=== PATIENT | male | born 1990 | race Caucasian/White ===

== ENCOUNTER 2021-08-08 11:41 | Emergency (ER) | payer SELFPAY ==
[2021-08-08] MEDS ORDERED: MAGNES/ALUMIN/SIMET 30ML UCUP ONE (12:23)
[2021-08-08] MEDS ORDERED: PANTOPRAZOLE 40 MG INJ ONE (12:23)
[2021-08-08] MEDS ORDERED: LIDOCAINE VISCOUS 2% SOLN 15 ML UDC ONE (12:24)
[2021-08-08 12:32] LABS: Absolute Lymphocytes (CBC) 1.7 K/uL (0.7-4.9); Hematocrit 46.6 % (39.6-49.0); MPV 8.2 fL (7.6-11.3)
[2021-08-08 12:50] LABS: ALT/SGPT 57 U/L (12-78); AST/SGOT 20 U/L (15-37); Albumin 3.8 g/dL (3.4-5.0); Alkaline Phosphatase 87 U/L (45-117); BUN Blood Urea Nitrogen 16 mg/dL (7-18); Bicarbonate 25 mmol/L (21-32); Bilirubin Total 0.4 mg/dL (0.2-1.0); Glucose Level 93 mg/dL (74-106); Lipase 76 U/L (73-393); Potassium 3.9 mmol/L (3.5-5.1); Protein, Total 7.4 g/dL (6.4-8.2); Sodium Level 139 mmol/L (136-145)
--- NOTE | 2021-08-08 13:13 | RAD REPORT ---
EXAM DESCRIPTION: US - Abdomen Exam Limited - 08/08/2021 12:58 pm CLINICAL HISTORY: chest pain COMPARISON: No comparisons FINDINGS: No gallstones, sludge or other abnormalities within the gallbladder lumen. There is no wal l thickening or pericholecystic fluid. No common duct stone or biliary tree dilatation identified. IMPRESSION: Normal gallbladder and biliary tree ultrasound.
--- NOTE | 2021-08-08 13:51 | RAD REPORT ---
EXAM DESCRIPTION: [place] Single View08/08/2021 1:35 pm CLINICAL HISTORY: Chest pain COMPARISON: none FINDINGS: The lungs appear clear of acute infiltrate. The heart is normal size IMPRESSION: No acute abnormalities displayed
--- NOTE | 2021-08-08 14:14 | ER ---
Nurse's Notes [facility] Name: Nathan Tena Age: 30 yrs Sex: Male : 1990 Arrival Date: 08/08/2021 Time: 11:42 Bed 23 Private MD: Diagnosis: Chest pain, unspecified;Gastro-esophageal reflux disease with esophagitis Presentation: 08/08 12:14 Chief complaint: Patient states: Intermittent mid-sternal chest pain > 1 month, states ph that it was worse today while at work, describes as "tightness", also reports SOB, nausea, and dizziness when pain occurred today. Coronavirus screen: Vaccine status: Patient reports receiving the 2nd dose of the covid vaccine. Ebola Screen: No symptoms or risks identified at this time. Initial Sepsis Screen: Does the patient meet any 2 criteria? No. Patient's initial sepsis screen is negative. Does the patient have a suspected source of infection? No. Patient's initial sepsis screen is negative. Risk Assessment: Do you want to hurt yourself or someone else? Patient reports no desire to harm self or others. Onset of symptoms was August 08, 2021. 12:14 Method Of Arrival: Wheelchair ph 12:14 Acuity: NAZARIO 3 ph Triage Assessment: 12:17 General: Appears in no apparent distress. Behavior is calm, cooperative, appropriate ph for age, Denies fever. Pain: Complains of pain in anterior aspect of right upper chest, anterior aspect of left upper chest and mid-sternal area Pain radiates to anterior aspect of left shoulder. Neuro: Level of Consciousness is awake, alert, obeys commands, Oriented to person, place, time, situation. Cardiovascular: Reports chest pain, lightheadedness, shortness of breath. Respiratory: No deficits noted. Derm: Skin is intact, is healthy with good turgor, Skin is pink, warm \\T\\ dry. Historical: - Allergies: 12:16 No Known Allergies; ph - PMHx: 12:16 Asthma; Sleep apnea; ph - PSHx: 12:16 hernia; ph - Immunization history:: Adult Immunizations up to date. - Social history:: Smoking status: Patient denies any tobacco usage or history of. - Family history:: not pertinent. - Hospitalizations: : No recent hospitalization is reported. Screenin:20 Abuse screen: Denies threats or abuse. Nutritional screening: No deficits noted. ss7 Tuberculosis screening: No symptoms or risk factors identified. Fall Risk IV access (20 points). Assessment: 12:20 General: Appears in no apparent distress. uncomfortable, Behavior is calm, cooperative, ss7 appropriate for age. Pain: Complains of pain in epigastric. Neuro: No deficits noted. Cardiovascular: Heart tones S1 S2. Respiratory: Airway is patent Breath sounds are clear bilaterally. GI: Bowel sounds present X 4 quads. Abd is soft in epigastric area Abdomen is tender to palpation. : No deficits noted. EENT: No deficits noted. Derm: No deficits noted. Musculoskeletal: No deficits noted. Vital Signs: 12:14 BP 152 / 88; Pulse 57; Resp 18; Temp 98.3; Pulse Ox 98% on R/A; Weight 142.88 kg; ph Height 6 ft. 2 in. (187.96 cm); 13:00 BP 122 / 58; Pulse 53; Resp 16; Pulse Ox 96% on R/A; ss7 14:00 BP 107 / 59; Pulse 52; Resp 18; Pulse Ox 97% on R/A; ss7 12:14 Body Mass Index 40.44 (142.88 kg, 187.96 cm) ph ED Course: 11:42 Patient arrived in ED. am2 12:00 Mike Smith MD is Attending Physician. rn 12:16 Triage completed. ph 12:17 Arm band placed on Patient placed in an exam room, on a stretcher. ph 12:19 Zenia Guerra, RN is Primary Nurse. ss7 12:20 Patient has correct armband on for positive identification. Bed in low position. Call ss7 light in reach. ichthyologist on. Pulse ox on. NIBP on. 12:20 No provider procedures requiring assistance completed. Inserted saline lock: 20 gauge ss7 in right antecubital area, using aseptic technique. 12:21 Troponin High Sensitivity Sent. ss7 12:21 Abdomen Limited US Sent. ss7 12:22 CBC with Diff Sent. ss7 12:22 CMP Sent. ss7 12:22 Lipase Sent. ss7 12:59 EKG done, by ED staff. lr4 13:00 Abdomen Limited US In Process Unspecified. EDMS 13:36 XRAY Chest (1 view) In Process Unspecified. EDMS 14:13 Irineo Torres MD is Referral Physician. rn 14:28 IV discontinued, intact. ss7 Administered Medications: 12:26 Drug: ProTONIX (pantoprazole) 40 mg Route: IVP; Site: right antecubital; lr4 14:28 Follow up: Response: No adverse reaction ss7 12:26 Drug: GI Cocktail without - (Maalox Suspension 30 ml, Lidocaine Liquid 2 % 15 lr4 ml) Route: PO; 14:28 Follow up: Response: No adverse reaction ss7 Outcome: 14:13 Discharge ordered by . rn 14:28 Discharged to home ambulatory. ss7 14:28 Condition: good 14:28 Discharge instructions given to patient, Instructed on discharge instructions, follow up and referral plans. Demonstrated understanding of instructions, follow-up care. 14:37 Patient left the ED. ss7 Signatures: Dispatcher [employer] Mike Balderas MD MD rn Hall, Patricia RN ALY Rodríguez, Zenia Campos RN RN ss7 Brenda Sommer RN RN lr4
--- NOTE | 2021-08-08 14:14 | EDPHYS ---
Physician Documentation [facility] Name: Nathan Tena Age: 30 yrs Sex: Male : 1990 Arrival Date: 08/08/2021 Time: 11:42 Bed 23 Private MD: ED Physician Mike Smith HPI: 08/08 13:25 This 30 yrs old Male presents to ER via Wheelchair with complaints of Chest Pain. rn 13:25 The patient or guardian reports chest pain that is located primarily in the substernal rn area. The pain does not radiate. Associated signs and symptoms: Pertinent positives: abdominal pain, Pertinent negatives: cough, diaphoresis, shortness of breath, syncope, vomiting. The chest pain is described as aching. Duration: The patient or guardian reports multiple episodes, that are intermittent. Modifying factors: The symptoms are alleviated by nothing. the symptoms are aggravated by eating. Severity of pain: At its worst the pain was moderate in the emergency department the pain is unchanged. The patient has experienced similar episodes in the past. The patient has been recently seen by a physician:. Pt reports ongoing chest pain for months, almost daily, worse over last 2 weeks, reports feels tight and achy. No trauma. No fever/cough. Reports sometimes worse after eating. NO vomiting/diarrhea. Reports lately increase in coffee/energy drinks as well as increase in fast food. Has been seen for chest pain in an ER and told wasn't his heart. . Historical: - Allergies: 12:16 No Known Allergies; ph - PMHx: 12:16 Asthma; Sleep apnea; ph - PSHx: 12:16 hernia; ph - Immunization history:: Adult Immunizations up to date. - Social history:: Smoking status: Patient denies any tobacco usage or history of. - Family history:: not pertinent. - Hospitalizations: : No recent hospitalization is reported. ROS: 13:25 Constitutional: Negative for fever, chills, and weight loss, Eyes: Negative for injury, rn pain, redness, and discharge, Neck: Negative for injury, pain, and swelling, Cardiovascular: Negative for palpitations, and edema, Respiratory: Negative for shortness of breath, cough, wheezing, and pleuritic chest pain, Abdomen/GI: Negative for nausea, vomiting, diarrhea, and constipation, Back: Negative for injury and pain, MS/Extremity: Negative for injury and deformity, Skin: Negative for injury, rash, and discoloration, Neuro: Negative for headache, weakness, numbness, tingling, and seizure. Exam: 13:25 Constitutional: Overweight male, no acute distress Head/Face: Normocephalic, rn atraumatic. Eyes: Periorbital areas with no swelling, redness, or edema. Cardiovascular: Regular rate and rhythm. No pulse deficits. Respiratory: No increased work of breathing, no retractions or nasal flaring. Abdomen/GI: soft, mild epigastric and RUQ tenderness, no rebound, neg [place] Skin: Warm, dry MS/ Extremity: Pulses equal, no cyanosis. Neuro: Awake and alert, GCS 15 Vital Signs: 12:14 BP 152 / 88; Pulse 57; Resp 18; Temp 98.3; Pulse Ox 98% on R/A; Weight 142.88 kg; ph Height 6 ft. 2 in. (187.96 cm); 13:00 BP 122 / 58; Pulse 53; Resp 16; Pulse Ox 96% on R/A; ss7 14:00 BP 107 / 59; Pulse 52; Resp 18; Pulse Ox 97% on R/A; ss7 12:14 Body Mass Index 40.44 (142.88 kg, 187.96 cm) ph MDM: 12:00 Patient medically screened. rn 12:55 ED course: U/S neg per certified medical technician, no stones or thickening.. rn 14:08 Differential diagnosis: acute myocardial infarction, acute pericarditis, coronary rn artery disease cholecystitis, Cholelithiasis costochondritis, esophagitis, gastritis, gastroesophageal reflux disease (GERD), pancreatitis, pleurisy, pneumothorax. HEART Score: History: Slightly Suspicious (0), ECG: Normal (0), Age: < or = 45 years (0), Risk Factors: No Risk Factors Known (0), Troponin: < or = 1 x Normal Limit (0), Total Score = 0. Data reviewed: vital signs, nurses notes, lab test result(s), EKG, radiologic studies, plain films, ultrasound, and as a result, I will discharge patient. Counseling: I had a detailed discussion with the patient and/or guardian regarding: the historical points, exam findings, and any diagnostic results supporting the discharge/admit diagnosis, lab results, radiology results, the need for outpatient follow up, to return to the emergency department if symptoms worsen or persist or if there are any questions or concerns that arise at home. Response to treatment: the patient's symptoms have mildly improved after treatment, and as a result, I will discharge patient. Special discussion: Based on the patient's history, exam, and Dx evaluation, there is no indication for emergent intervention or inpatient Tx. It is understood by the patient/guardian that if the Sx's persist or worsen they need to return immediately for re-evaluation. Based on the patient's Hx, exam, and Dx evaluation, there is no indication for emergent surgery or inpatient Tx. It is understood by the patient/guardian that if the Sx's persist or worsen they need to return immediately for re-evaluation. I discussed with the patient/guardian in detail that at this point there is no indication for admission to the hospital. It is understood, however, that if the symptoms persist or worsen the patient needs to return immediately for re-evaluation. 14:08 Special discussion: Based on the history and exam findings, there is no indication for rn further emergent testing or inpatient evaluation. I discussed with the patient/guardian the need to see the enterprise application analyst for further evaluation of the symptoms. 08/08 12:14 Order name: CBC with Diff; Complete Time: 12: rn 08/08 12:14 Order name: CMP; Complete Time: 12: rn 08/08 12:14 Order name: Lipase; Complete Time: 12: rn 08/08 12:14 Order name: Abdomen Limited US; Complete Time: 13:18 rn 08/08 12:14 Order name: Troponin High Sensitivity; Complete Time: 12:52 rn 08/08 12:14 Order name: XRAY Chest (1 view); Complete Time: 14:07 rn 08/08 12:14 Order name: IV Saline Lock; Complete Time: 12:22 rn 08/08 12:14 Order name: Labs collected and sent; Complete Time: 12:22 rn Administered Medications: 12:26 Drug: ProTONIX (pantoprazole) 40 mg Route: IVP; Site: right antecubital; lr4 14:28 Follow up: Response: No adverse reaction ss7 12:26 Drug: GI Cocktail without - (Maalox Suspension 30 ml, Lidocaine Liquid 2 % 15 lr4 ml) Route: PO; 14:28 Follow up: Response: No adverse reaction ss7 Disposition Summary: 08/08/21 14:13 Discharge Ordered Location: Home rn Problem: an ongoing problem rn Symptoms: have improved rn Condition: Stable rn Diagnosis - Chest pain, unspecified rn - Gastro-esophageal reflux disease with esophagitis rn Followup: rn - With: Irineo Torres MD - When: As needed - Reason: Recheck today's complaints, Re-evaluation by your physician Discharge Instructions: - Discharge Summary Sheet rn - Nonspecific Chest Pain, Adult rn - Food Choices for Gastroesophageal Reflux Disease, Adult rn - Esophagitis rn - Gastroesophageal Reflux Disease, Adult rn Forms: - Medication Reconciliation Form rn - Thank You Letter rn - Antibiotic medical technologist prn - Prescription Opioid Use rn - Work release form eb Prescriptions: - Protonix 40 mg Oral Tablet - take 1 tablet by ORAL route once daily; 30 tablet; Refills: 0, Product rn Selection Permitted Signatures: Dispatcher [employer] Mike Balderas MD MD rn Hall, Patricia, RN RN ph Rogers, Lashaunda RN RN [email or web address] Zenia Guerra RN ss7
[2021-08-08 14:42] VITALS: TEMP 98.3
[2021-08-08 14:45] VITALS: BP 107/59; O2SAT 97
--- NOTE | 2021-08-12 12:40 | EKG ---
Test Date: 2021-08-08 Test Time: 12:59:15 Director Child Abuse Therapy: MATIAS MEASUREMENT RESULTS: Intervals: Rate: 52 IA: 146 QRSD: 84 QT: 418 QTc: 388 [place]: P: 15 IA: 146 QRS: 24 T: 46 INTERPRETIVE STATEMENTS: Sinus bradycardia with sinus arrhythmia Otherwise normal ECG No previous ECG available for comparison Electronically Signed On 08-12-21 12:33:52 CDT by Sam Mosley
== END 2021-08-08 14:37 | disposition home or self-care (01) ==
LOC: ER 11:41
DX: R07.9 Chest pain, unspecified (principal); K21.00 Gastro-esophageal reflux disease with esophagitis, without bleeding; J45.909 Unspecified asthma, uncomplicated; G47.30 Sleep apnea, unspecified
CPT/HCPCS: 36415; 71045; 76705; 80053; 83690; 84484; 85025; 93005; 96374; 99284; C9113